=== PATIENT | male | born 1965 | race Caucasian/White ===

== ENCOUNTER 2019-12-19 17:34 | Outpatient (REF) | payer OTHER, SELFPAY ==
--- NOTE | 2019-12-19 17:45 | MR_ITS ---
EXAMINATION: MR LUMBAR SPINE WITHOUT CONTRAST CLINICAL INFORMATION: Radicular. Patient states low back pain with left foot and leg pain. COMPARISON: None TECHNIQUE: MRI of the lumbar spine was obtained using routine sequences without contrast. FINDINGS: The lumbar vertebral bodies maintain normal heights and alignment. There is multilevel intervertebral disc height loss. Mild amount of subchondral marrow edema seen across the L5-S1 level. Mild chronic fatty endplate changes seen at L5-S1. A superior endplate Schmorl's node is seen at L4. There is a prominent hemangioma in the L4 vertebral body left of midline. The distal spinal cord appears normal. The conus medullaris terminates normally at the L1 level. The visualized paraspinal muscles and intra-abdominal and pelvic contents are within normal limits. SPINAL LEVELS: T11-T12: Right subarticular protrusion causing mild flattening of the right ventral thecal sac. No significant spinal canal stenosis or neural foraminal stenosis. L1-L2: No posterior disc abnormality. No spinal canal or neural foraminal stenosis. L2-L3: Disc bulging with mild facet arthropathy. Mild flattening of the left ventral thecal sac. No neural foraminal stenosis. L3-L4: Disc bulging with central protrusion in combination with facet arthropathy results in mild to moderate spinal canal stenosis. Bulging disc extends into the bilateral neural foramina resulting in mild mass effect on the exiting right L3 nerve root. Left neural foramen is mildly narrowed. L4-L5: Disc bulging with moderate facet arthropathy. Mild flattening of the ventral thecal sac. Mild to moderate right neural foraminal stenosis without foraminal nerve root compression. L5-S1: Disc bulging with central disc protrusion resulting in mass effect on the bilateral traversing S1 nerve roots. Mild to moderate facet arthropathy. Moderate to severe left neural foraminal stenosis with mass effect on the exiting left L5 nerve root. Right neural foramen is mild to moderately narrowed. IMPRESSION: Multilevel degenerative spondylotic changes. Subchondral marrow edema seen at the L5-S1 level. At L3-L4 there is mild to moderate spinal canal stenosis and mild mass effect on the exiting right L3 nerve root. At L4-L5 there is mild to moderate right neural foraminal stenosis without foraminal nerve root compression. At L5-S1 there is central disc protrusion causing mass effect on both traversing S1 nerve roots. Moderate to severe left neural foraminal stenosis with mass effect on the exiting left L5 nerve root. Right neural foramen is mild to moderately narrowed.
== END 2019-12-19 17:35 | disposition home or self-care (01) ==
LOC: HO.MRI 17:34
PROVIDERS: Visit Provider Internal Medicine
DX: M54.16 Radiculopathy, lumbar region (principal)
CPT/HCPCS: 72148

== ENCOUNTER 2019-12-27 10:00 | Outpatient (RCR) | payer OTHER, SELFPAY ==
--- NOTE | 2019-12-27 11:55 | MHC.PT.DC ---
[facility] [place] Office [place] [facility] [place] [facility] [address] Daniella Pritchard [address] [phone] F: [phone] F: [phone] F: [phone] F: [phone] Physical Therapy Discharge Report Diagnosis: low back pain Date of Surgery: no surgery. Injury date October 14 2019 Date of Evaluation: 11/22/19 Date of Discharge: 12/27/19 Treatments to Date: 7 Cancellations to Date: 1 No Shows to Date: 0 Discharge Status: Improved Function Independent with HEP Discharge Summary: Pt discussed an MRI with his MD. He arrived with further questions about his spine, and biomechanics. He was heavily educated on posture, spine mechanics, body mechanics, inflammatory process, and plan of care. After discussion he felt he understood body mechanics, posture, and his HEP of core stabilization. I reviewed his HEP. I gave him marito mir and he was d/c. He will f/u with his MD. Please sign and return to therapist. Thank you for your referral.
== END 2020-11-24 09:39 | disposition home or self-care (01) ==
LOC: HO.PT 10:00
PROVIDERS: PCP Internal Medicine; Visit Provider Internal Medicine
DX: M54.5 Low back pain (principal)
CPT/HCPCS: 97110; 97112; 97530

== ENCOUNTER 2020-10-03 11:35 | Outpatient (REF) | payer BC, SELFPAY | END 2020-10-03 11:36 | disposition home or self-care (01) | LOC: HO.LNP 11:35 | PROVIDERS: Visit Provider Physician Assistant Medical | DX: Z20.822 Contact with and (suspected) exposure to COVID-19 (principal); J31.0 Chronic rhinitis | CPT/HCPCS: U0003; U0005 ==

== ENCOUNTER → 2021-03-25 10:16 | Outpatient (REF) | payer BC, SELFPAY ==
--- NOTE | 2021-03-25 10:19 | CA_ITS ---
Acquisition Time: 2021-03-25 11:18:03 Total Exercise Time: 00:02:34 Test Indications: HTN Medications: SEE CHART Protocol: GARCIA Max HR: 102 BPM 62% of Pred: 164 BPM Max BP: 238/088 mmHG Max Work Load: 4.6 METS Exercise stress test with exercise 2 min 34 sec of Garcia protocol, with mild sob, no chest discomfort, without arrythmia, with hypertensive response to exercise with max BP 238/88, with nondiagnostic EKG for ischemia. - On arrival to the stress lab his BP was 184/90. He was allowed to take his usual home amlodipine and HCTZ. His Metoprolol was still held. After 15 min of resting his BP came down to 130s systolic. Test was then started, as above and BP quickly wayne with activity. His test was stopped due to the HTN. He was assisted to sitting position and allowed to rest and take his usual Metoprolol. After 12.5 min BP was down to 178/98, pt asymptomatic, EKGs nonischemic. Test reviewed with Dr Joel Bacon sent to Dr Chow regarding the above, recommendation for pharm nuclear stress test. Referred By: Veronika Chow Overread By: MADINA JOLLY
== END ==
LOC: HO.CARD 10:16
PROVIDERS: PCP Internal Medicine; Visit Provider Internal Medicine
DX: R07.9 Chest pain, unspecified (principal)
CPT/HCPCS: 93017

== ENCOUNTER → 2021-04-27 09:53 | Outpatient (REF) | payer BC, SELFPAY ==
--- NOTE | ~2021-04-27 | NM_ITS ---
Lexiscan Myocardial perfusion study Indication: Chest pain, assess for coronary disease and ischemia Technique: The patient was brought in for a Lexiscan perfusion study on 04/27/2021 and was injected 0.4 mg of Lexiscan intravenously. Within a minute of this injection 45 mCi of sestamibi was given intravenously. Images were obtained using the SPECT gamma camera interlaced with the gating device. Images were obtained in supine position. Resting perfusion study was performed on 05/03/2021. Patient was administered 45 mCi of sestamibi intravenously at rest. Images were then obtained in supine position. Total DLP 145mGy-cm. Images were processed with the software and compared side to side in short axis, horizontal long axis and vertical long axis views. Findings: Raw acquisition was reviewed. The stress perfusion study showed mildly diminished tracer uptake in the apical part of inferolateral wall. There is also some diminished uptake in the basal inferior wall. Inferior uptake seems to improve after CT at admission correction and hence could have components of diaphragmatic attenuation artifact. The gated study shows normal LV systolic function with calculated LVEF of 58%. LV cavity is normal in size. The gated study shows normal wall thickening and contraction of segments. Resting study shows slightly diminished tracer uptake in the basal inferior wall and also in the apical inferolateral wall, similar to the stress acquisition. There is improvement with CT attenuation correction and hence could be from diaphragmatic attenuation artifact. Gating at rest reveals normal wall motion with ejection fraction at 49%. The findings are consistent with no reversible defects. Fixed defect in the basal inferior wall and apical inferolateral wall likely from diaphragmatic attenuation artifact. NM/NM amina perf SPECT rest & str Impression: 1. Myocardial perfusion imaging study shows no evidence of any ischemia or infarction. Likely normal perfusion. 2. Gated LVEF is 58% during stress and 49% during rest. Correlate with echocardiogram. 3. Transient ischemic dilatation not present. EKG component of the test reported separately.
--- NOTE | 2021-04-27 10:01 | CA_ITS ---
Acquisition Time: 2021-04-27 10:07:07 Total Exercise Time: 00:02:00 Test Indications: Chest Pain Medications: Protocol: LEXISCAN Max HR: 090 BPM 54% of Pred: 164 BPM Max BP: 160/078 mmHG Max Work Load: 1.0 METS Pharmacological stress test with Lexiscan injection, while sitting and kicking his legs, without anginal symptoms, without arrythmia, with normotensive response to injection, with nondiagnostic EKG for ischemia. Nuclear images pending. Test reviewed with Dr Isidro. Referred By: Veronika Chow Overread By: MADINA JOLLY
== END ==
LOC: HO.CARD 09:53
PROVIDERS: PCP Internal Medicine; Visit Provider Internal Medicine
DX: R07.9 Chest pain, unspecified (principal)
CPT/HCPCS: 78452; 93017; A9500; J0280; J2785

== ENCOUNTER 2022-10-31 12:52 | Outpatient (REF) | payer OTHER, SELFPAY ==
[2022-10-31 16:20] LABS: MANUAL DIFF FLAG NO
[2022-10-31 16:22] LABS: Basophils Absolute Auto 0.1 X10*3/uL (0.0-0.2); Basophils Percent Auto 0.7 % (0-2); Eosinophils Absolute Auto 0.3 X10*3/uL (0.0-0.4); Eosinophils Percent Auto 4.7 % (0-4); Hematocrit 43.2 % (42.0-52.0); Hemoglobin 14.3 g/dl (14.0-18.0); Imm Gran Abs Auto 0.01 X10*3/uL (0.00-0.03); Imm Gran Pct Auto 0.1 % (0.0-0.4); Lymphocytes Absolute Auto 1.5 X10*3/uL (1.2-4.9); Lymphocytes Percent Auto 22.2 % (20-40); Mean Corpuscular HGB Conc 33.1 g/dl (31.0-36.0); Mean Corpuscular Hemoglobin 29.3 pg (27.0-33.0); Mean Corpuscular Volume 88.5 fL (80.0-98.0); Monocytes Absolute Auto 0.6 X10*3/uL (0.1-1.2); Monocytes Percent Auto 8.8 % (2-11); Neutrophils Absolute Auto 4.4 x10*3/uL (2.0-8.3); Neutrophils Percent Auto 63.5 % (45-73); Platelet Count 252 X10*3/uL (160-400); Red Blood Count 4.88 X10*6/uL (4.60-5.80); Red Cell Distribution Width 12.3 % (11.0-16.0); White Blood Count 6.9 X10*3/uL (4.8-10.8)
[2022-11-01 02:09] LABS: Alanine Aminotransferase 24 U/L (0-40); Albumin Level 4.4 g/dL (3.5-5.0); Alkaline Phosphatase 59 U/L (39-117); Anion Gap 10 (12-20); Aspartate Amino Transferase 25 U/L (5-37); Bilirubin Total 0.4 mg/dL (0.0-1.0); Blood Urea Nitrogen 19 mg/dL (9-16); Calcium 9.6 mg/dL (8.4-10.2); Carbon Dioxide 30 mmol/L (22-29); Chloride 105 mmol/L (96-108); Cholesterol 213 mg/dL; Estimated Glomerular Filt Rate > 60; Free T4 (Free Thyroxine) 0.85 ng/dL (0.71-1.85); Glucose Random 94 mg/dL (60-115); HDL Cholesterol 52 mg/dL; LDL Cholesterol Calculated 138 mg/dl; Sodium 141 mmol/L (135-145); Thyroid Stimulating Hormone 2.22 uIU/mL (0.32-4.0); Total Protein 7.5 g/dL (6.5-8.0); Triglycerides 117 mg/dL
[2022-11-01 05:22] LABS: Estimated Average Glucose 105 mg/dL; Hemoglobin A1c % 5.3 %
== END 2022-10-31 12:53 | disposition home or self-care (01) ==
LOC: HO.HMGCLDS 12:52
PROVIDERS: PCP Internal Medicine; Visit Provider Internal Medicine
DX: Z12.5 Encounter for screening for malignant neoplasm of prostate (principal); I10 Essential (primary) hypertension; E78.00 Pure hypercholesterolemia, unspecified; E66.9 Obesity, unspecified
CPT/HCPCS: 36415; 80053; 80061; 83036; 84153; 84439; 84443; 85025

== ENCOUNTER 2022-10-31 14:01 | Outpatient (AMB) | payer OTHER, SELFPAY ==
--- NOTE | 2022-10-31 14:43 | MHC.PC.OV ---
Vital Signs 10/31/22 14:44 Height 5 ft 9 in Weight 248 lb BMI 36.6 BP 138/66 Blood Pressure Location Lt brachial Position Sitting Pulse 60 Pulse Source Pulse Oximeter Temp Source Skin Pulse Oximetry (%) 97 Oxygen Delivery Method Room Air Intake Visit Reasons: Hypertension Make Up Girl Required: No Allergies amlodipine Adverse Reaction (Intermediate, Verified 10/31/22 14:44) swelling Tobacco use date assessed: 10/31/22 Dental Screening Dental Screen Date: 10/31/22 Did you have a dental visit in the last 12 months?: No Did you have a dental problem in the last 6 months where you did not have access to dental care?: No Was dental information given to patient?: Patient has dentist HPI Hypertension HPI Details 57-year-old obese male with lumbar disc herniation with radiculopathy on narcotic pain medication, hypertension coming in for follow-up. Blood pressure medication adjusted from the last time. Patient is reminded about the Cologuard testing. Patient was last seen in May 2022 patient has been doing good with the blood pressure medication 3 medications and the blood pressure today has been good with no side effects. As for the blood work this was just done today. [facility] Medical History Hypertension Lumbar disc herniation with radiculopathy Obesity (BMI 30-39.9) Surgical History No pertinent past surgical history Family History (Updated 05/27/22 @ 13:24 by Nitish Iqbal CMA) Father Diabetes Mother Parkinson disease Brother Myocardial infarct Brother No problems noted. Brother No problems noted. Sister No problems noted. Sister No problems noted. Son No problems noted. Son No problems noted. Social History Housing: House Alcohol intake: current Patient Tobacco Use Status: Former Tobacco user Years Smoked: 1999 quit e-Cigarette/Vaping Use: Never Used Second Hand Smoke Exposure: No Advance Directives Date on File: 12/20/19 Current occupational status: employed Cognitive needs: No Hearing needs: No Vision needs: No Questionnaire PHQ-9 Over the last 2 weeks, how often have you been bothered by any of the following problems? 1. Little interest or pleasure in doing things: not at all Source: Developed by Drs. Melecio Galan, Brina Walden, Rodolfo Diehl and colleagues, with an educational robb from [employer]. Thrive Questionnaire Date Thrive assessed: 08/05/21 I am a: Patient What is your living situation today?: I have a steady place to live Within the past 12 months, did the food you bought not last and you didn't have the money to get more?: Never true Within the past 12 months, did you worry whether your food would run out before you got money to buy more?: Never true Currently or been in a relationship where the following occur: no concerns reported AUDIT C Alcohol Use Questionnaire (AUDIT-C) 1. How often do you have a drink containing alcohol?: Monthly or less 2. How many drinks containing alcohol do you have on a typical day when you are drinking?: 1 or 2 3. How often do you have six or more drinks on one occasion?: Never Total Score: 1 DAWNA-7 AMB Questionnaire DAWNA-7 Date DAWNA - 7 assessed: 10/31/22 Feeling nervous, anxious, or on edge: 0 = Not at all Not being able to stop or control worryin = Not at all Worrying too much about different things: 0 = Not at all Trouble relaxin = Not at all Being so restless that it is hard to sit still: 0 = Not at all Becoming easily annoyed or irritable: 0 = Not at all Feeling afraid as if something awful might happen: 0 = Not at all Total DAWNA-7 score (0-4 normal; 5-9 mild; 10-14 moderate; 15-21 severe): 0 Source: Developed by Drs. Melecio Galan, Brina Walden, Rodolfo Diehl and colleagues, with an educational robb from [employer]. Physical exam (Primary Care) Vital Signs: Last Vital Signs Pulse 60 10/31/22 14:44 BP 138/66 10/31/22 14:44 Pulse Ox 97 10/31/22 14:44 Oxygen Delivery Method Room Air 10/31/22 14:44 BMI result Body Mass Index 36.6 Tobacco/Smoking Status: Tobacco use Status Tobacco use date assessed 10/31/22 10/31/22 14:48 Patient Tobacco Use Status Former Tobacco user 10/31/22 14:48 e-Cigarette/Vaping Use Never Used 10/31/22 14:48 Thrive Assessment: Date of Thrive Assessment Date Thrive assessed 08/05/21 10/31/22 14:48 Currently or been in a relationship where the following occur: no concerns reported Const General: alert; No acute distress Eyes Conjunctivae: conjunctivae normal Resp Auscultation: clear to auscultation bilaterally Cardio Rate: regular rate Rhythm: regular rhythm GI Inspection: Yes normal to inspection Extrem General: Yes normal to inspection and No edema Assessment and Plan Assessment & Plan (1) Hypertension: Code(s): I10 - Essential (primary) hypertension Plan: Continue with blood pressure medication. Decrease salt intake and exercise continue with lisinopril 40 mg once a day and hydrochlorothiazide 25 mg once a day and metoprolol 100 mg once a day (2) Lumbar disc herniation with radiculopathy: Comment: discussed with the patient the options for this problem from medication, invasive procedures to surgery. definitely would want to hold off surgery. referral to pain management done Code(s): M51.16 - Intervertebral disc disorders with radiculopathy, lumbar region Plan: Narcotic pain meds: Is being prescribed with the understanding that these medications are potentially addictive and should be used only when absolutely necessary and must always be secured. Any remaining pills should be safely disposed off appropriately. Patient is advised that narcotics can impaired judgment and one should not drive or operate heavy machinery while taking these medications. Never share these medications with anybody and do not leave them unattended. They will not be replaced under any circumstances. (3) Obesity (BMI 30-39.9): Code(s): E66.9 - Obesity, unspecified Plan: Diet and exercise Coding Level of Care Code Est Pt Level 4 (77506) Diagnoses Hypertension I10 Lumbar disc herniation with radiculopathy M51.16 Obesity (BMI 30-39.9) E66.9
[2022-10-31 14:44] VITALS: BP 138/66; PULSE 60; O2SAT 97; BMI 36.6
== END 2022-10-31 15:22 | disposition home or self-care (01) ==
PROVIDERS: PCP Internal Medicine; Visit Provider Internal Medicine
DX: I10 Essential (primary) hypertension (principal); M51.16 Intervertebral disc disorders with radiculopathy, lumbar region; E66.9 Obesity, unspecified; Z68.36 Body mass index [BMI] 36.0-36.9, adult
CPT/HCPCS: 99214

== ENCOUNTER 2023-02-13 13:29 | Outpatient (AMB) | payer OTHER, SELFPAY ==
[2023-02-13 13:31] VITALS: BP 162/90; PULSE 50; O2SAT 96; BMI 37.9
--- NOTE | 2023-02-13 13:31 | A.OFFPC_ITS ---
Vital Signs 02/13/23 13:31 Height 5 ft 9 in Weight 257 lb BMI 37.9 BP 162/90 H Blood Pressure Location Lt brachial Position Sitting Pulse 50 Pulse Source Pulse Oximeter Pulse Oximetry (%) 96 Oxygen Delivery Method Room Air Intake Visit Reasons: 3 month f/u Allergies amlodipine Adverse Reaction (Intermediate, Verified 10/31/22 14:44) swelling Medication List - Last Reconciled 02/13/23 by Veronika Chow MD hydrochlorothiazide 25 mg PO QAM 90 days lisinopril 40 mg PO DAILY 90 days metoprolol succinate ER 100 mg PO DAILY oxycodone-acetaminophen 5-325 mg (Percocet) 1 tab PO Q8H PRN 30 days Tobacco use date assessed: 10/31/22 HPI 3 month f/u HPI Details 57-year-old obese male with a history of hypertension and lumbar disc herniation last seen in October 2022. Patient had Cologuard testing June 2019 and due discussed with the patient regarding the weight gain of 10 lb and noted also an elevated blood pressure. Patient is on 3 blood pressure medications already and blood pressure remains to be elevated. Patient declined new medication and will have to work on the weight. Patient is on pain medication and does not need any refill right now. [facility] Medical History Hypertension Lumbar disc herniation with radiculopathy Obesity (BMI 30-39.9) Surgical History No pertinent past surgical history Family History (Updated 05/27/22 @ 13:24 by Nitish Iqbal CMA) Father Diabetes Mother Parkinson disease Brother Myocardial infarct Brother No problems noted. Brother No problems noted. Sister No problems noted. Sister No problems noted. Son No problems noted. Son No problems noted. Housing: House Alcohol intake: current Patient Tobacco Use Status: Former Tobacco user Years Smoked: 1999 quit e-Cigarette/Vaping Use: Never Used Second Hand Smoke Exposure: No Advance Directives Date on File: 12/20/19 Current occupational status: employed Cognitive needs: No Hearing needs: No Vision needs: No Questionnaire Thrive Questionnaire Date Thrive assessed: 08/05/21 DAWNA-7 AMB Questionnaire DAWNA-7 Date DAWNA - 7 assessed: 10/31/22 Source: Developed by Drs. Melecio Galan, Brina Walden, Rodolfo Diehl and colleagues, with an educational robb from [employer]. Physical exam (Primary Care) Vital Signs: Last Vital Signs Pulse 50 02/13/23 13:31 BP 162/90 H 02/13/23 13:31 Pulse Ox 96 02/13/23 13:31 Oxygen Delivery Method Room Air 02/13/23 13:31 BMI result Body Mass Index 37.9 Tobacco/Smoking Status: Tobacco use Status Tobacco use date assessed 10/31/22 02/13/23 13:34 Patient Tobacco Use Status Former Tobacco user 02/13/23 13:34 e-Cigarette/Vaping Use Never Used 02/13/23 13:34 Thrive Assessment: Date of Thrive Assessment Date Thrive assessed 08/05/21 02/13/23 13:34 Const General: alert; No acute distress Eyes Conjunctivae: conjunctivae normal Resp Auscultation: clear to auscultation bilaterally Cardio Rate: regular rate Rhythm: regular rhythm GI Inspection: Yes normal to inspection Extrem General: Yes normal to inspection and No edema Assessment and Plan Assessment & Plan (1) Hypertension: Code(s): I10 - Essential (primary) hypertension Plan: Continue with blood pressure medication. Decrease salt intake and exercise patient is presently taking metoprolol 100 mg once a day lisinopril 40 mg a day and hydrochlorothiazide 25 mg once a day (2) Obesity (BMI 30-39.9): Code(s): E66.9 - Obesity, unspecified Plan: Diet and exercise (3) Lumbar disc herniation with radiculopathy: Comment: discussed with the patient the options for this problem from medication, invasive procedures to surgery. definitely would want to hold off surgery. referral to pain management done Code(s): M51.16 - Intervertebral disc disorders with radiculopathy, lumbar region Plan: Narcotic pain meds: Is being prescribed with the understanding that these medications are potentially addictive and should be used only when absolutely necessary and must always be secured. Any remaining pills should be safely disposed off appropriately. Patient is advised that narcotics can impaired judgment and one should not drive or operate heavy machinery while taking these medications. Never share these medications with anybody and do not leave them unattended. They will not be replaced under any circumstances. (4) Hypercholesterolemia: Code(s): E78.00 - Pure hypercholesterolemia, unspecified Plan: Avoid fried foods, chicken skin, eggs, butter margarine, pastries and meat. Be it pork or beef they have a lot of cholesterol LDL goal of less than 130 and triglyceride of less than 150. October 2022 last blood work (5) Colon cancer screening: Comment: 2019 Code(s): Z12.11 - Encounter for screening for malignant neoplasm of colon Orders: Referrals Cologuard Test Z12.11 - Encounter for screening for malignant neoplasm of colon, Z12.12 - Encounter for screening for malignant neoplasm of rectum Coding Level of Care Code Est Pt Level 4 (64264) Diagnoses Hypertension I10 Obesity (BMI 30-39.9) E66.9 Lumbar disc herniation with radiculopathy M51.16 Hypercholesterolemia E78.00 Colon cancer screening Z12.11
== END 2023-02-13 13:50 | disposition home or self-care (01) ==
PROVIDERS: PCP Internal Medicine; Visit Provider Internal Medicine
DX: I10 Essential (primary) hypertension (principal); M51.16 Intervertebral disc disorders with radiculopathy, lumbar region; E78.00 Pure hypercholesterolemia, unspecified
CPT/HCPCS: 99214

== ENCOUNTER 2023-08-03 12:51 | Outpatient (AMB) | payer OTHER, SELFPAY ==
[2023-08-03 12:53] VITALS: BP 148/92; PULSE 47; O2SAT 97; BMI 37.5
--- NOTE | 2023-08-03 12:53 | A.OFFPC_ITS ---
Vital Signs 08/03/23 12:53 Height 5 ft 9 in Weight 254 lb 0.8 oz BMI 37.5 BP 148/92 H Blood Pressure Location Lt brachial Position Sitting Pulse 47 L Pulse Source Pulse Oximeter Pulse Oximetry (%) 97 Oxygen Delivery Method Room Air Intake Visit Reasons: Hypertension Allergies amlodipine Adverse Reaction (Intermediate, Verified 10/31/22 14:44) swelling Medication List - Last Reconciled 08/03/23 by Veronika Chow MD hydrochlorothiazide 25 mg PO QAM 90 days lisinopril 40 mg PO DAILY 90 days metoprolol succinate ER 100 mg PO DAILY oxycodone-acetaminophen 5-325 mg (Percocet) 1 tab PO Q8H PRN 30 days Tobacco use date assessed: 10/31/22 Dental Screening Dental Screen Date: 10/31/22 HPI Hypertension HPI Details 58-year-old obese male with hypertension hypercholesterolemia and lumbar disc herniation on narcotic pain medication coming in for follow-up. Last seen in January 2023. Patient was noted to have Cologuard positive in February 2023 and has been reminded about colon testing. [facility] Medical History Hypertension Lumbar disc herniation with radiculopathy Obesity (BMI 30-39.9) Surgical History No pertinent past surgical history Family History (Updated 05/27/22 @ 13:24 by Nitish Iqbal CMA) Father Diabetes Mother Parkinson disease Brother Myocardial infarct Brother No problems noted. Brother No problems noted. Sister No problems noted. Sister No problems noted. Son No problems noted. Son No problems noted. Social History Housing: House Alcohol intake: current Patient Tobacco Use Status: Former Tobacco user Years Smoked: 1999 quit e-Cigarette/Vaping Use: Never Used Second Hand Smoke Exposure: No Advance Directives Date on File: 12/20/19 Current occupational status: employed Cognitive needs: No Hearing needs: No Vision needs: No Questionnaire PHQ-9 Over the last 2 weeks, how often have you been bothered by any of the following problems? 1. Little interest or pleasure in doing things: not at all 2. Feeling down, depressed, or hopeless: not at all 3. Trouble falling or staying asleep, or sleeping too much: not at all 4. Feeling tired or having little energy: not at all 5. Poor appetite or overeating: not at all 6. Feeling bad about yourself - or that you are a failure or have let yourself o r your family down: not at all 7. Trouble concentrating on things, such as reading the newspaper or watching television: not at all 8. Moving or speaking so slowly that other people could have noticed. Or the opposite - being so fidgety or restless that you have been moving around a lot more than usual: not at all 9. Thoughts that you would be better off or of hurting yourself in some way: not at all Total score: 0 Depression Screening Interpretation: Negative Depression Screening Done: Yes 37816 - PHQ-9 Billing: Yes Source: Developed by Drs. Melecio Galan, Brina Walden, Rodolfo de la rosa nd colleagues, with an educational robb from [employer]. Thrive Questionnaire Date Thrive assessed: 08/03/23 I am a: Patient What is your living situation today?: I have a steady place to live Within the past 12 months, did the food you bought not last and you didn't have the money to get more?: Never true Within the past 12 months, did you worry whether your food would run out before you got money to buy more?: Never true Do you have trouble paying for medicines?: No Do you have trouble getting transportation to medical appointments?: No Do you have trouble paying your heating and electricity bill?: No Do you have trouble taking care of your child, family member or friend?: No Do you have trouble with day-to-day activities such as bathing, preparing meals, shopping, managing finances, etc.?: No Are you currently unemployed and looking for a job?: No Are you interested in more education?: No Please select the resources that you would like help with: None Currently or been in a relationship where the following occur: no concerns reported THRIVE Score: 0 AUDIT C Alcohol Use Questionnaire (AUDIT-C) 1. How often do you have a drink containing alcohol?: Monthly or less 2. How many drinks containing alcohol do you have on a typical day when you are drinking?: 1 or 2 3. How often do you have six or more drinks on one occasion?: Never Total Score: 1 DAWNA-7 AMB Questionnaire DAWNA-7 Date DAWNA - 7 assessed: 08/03/23 Source: Developed by Drs. Melecio Galan, Brina Walden, Rodolfo Diehl and colleagues, with an educational robb from [employer]. Physical exam (Primary Care) Vital Signs: Oxygen Delivery Method Room Air 08/03/23 12:53 BMI result Body Mass Index 37.5 Tobacco/Smoking Status: Tobacco use Status Tobacco use date assessed 10/31/22 02/13/23 13:34 Patient Tobacco Use Status Former Tobacco user 02/13/23 13:34 e-Cigarette/Vaping Use Never Used 02/13/23 13:34 Depression Screening Interpretation: Negative Thrive Assessment: Date of Thrive Assessment Date Thrive assessed 08/05/21 02/13/23 13:34 Currently or been in a relationship where the following occur: no concerns reported Const General: alert; No acute distress Eyes Conjunctivae: conjunctivae normal Resp Auscultation: clear to auscultation bilaterally Cardio Rate: regular rate Rhythm: regular rhythm GI Inspection: Yes normal to inspection Extrem General: Yes normal to inspection and No edema Assessment and Plan Assessment & Plan (1) Positive colorectal cancer screening using Cologuard test: Code(s): R19.5 - Other fecal abnormalities Plan: Patient is reminded about colon cancer testing (2) Hypercholesterolemia: Code(s): E78.00 - Pure hypercholesterolemia, unspecified Plan: Avoid fried foods, chicken skin, eggs, butter margarine, pastries and meat. Be it pork or beef they have a lot of cholesterol LDL goal of less than 130 and triglyceride of less than 150. Last blood work was done in October 2022. (3) Obesity (BMI 30-39.9): Code(s): E66.9 - Obesity, unspecified Plan: Diet and exercise (4) Lumbar disc herniation with radiculopathy: Comment: discussed with the patient the options for this problem from medication, invasive procedures to surgery. definitely would want to hold off surgery. referral to pain management done Code(s): M51.16 - Intervertebral disc disorders with radiculopathy, lumbar region Plan: Narcotic pain meds: Is being prescribed with the understanding that these medications are potentially addictive and should be used only when absolutely necessary and must always be secured. Any remaining pills should be safely disposed off appropriately. Patient is advised that narcotics can impaired judgment and one should not drive or operate heavy machinery while taking these medications. Never share these medications with anybody and do not leave them unattended. They will not be replaced under any circumstances. (5) Hypertension: Code(s): I10 - Essential (primary) hypertension Plan: Continue with blood pressure medication. Decrease salt intake and exercise patient is taking lisinopril 40 mg once a day hydrochlorothiazide 25 mg once a day and metoprolol 100 mg once a day Orders: Orders Complete Blood Count Auto Diff 3 Months E78.00 - Pure hypercholesterolemia, unspecified Comprehensive Met. Panel 3 Months E78.00 - Pure hypercholesterolemia, unspecified Free T4 (Free Thyroxine) 3 Months E78.00 - Pure hypercholesterolemia, unspecified Thyroid Stimulating Hormone 3 Months E78.00 - Pure hypercholesterolemia, unspecified Lipid Panel 3 Months E78.00 - Pure hypercholesterolemia, unspecified Vitamin B12 and Folate 3 Months E78.00 - Pure hypercholesterolemia, unspecified Prostate Specific Antigen Scr 3 Months E78.00 - Pure hypercholesterolemia, unspecified Referrals Gastroenterology Referral R19.5 - Other fecal abnormalities Medications: Refilled oxycodone-acetaminophen 5-325 mg (Percocet) 1 tab PO Q8H 30 days PRN 60 tabs 0RF pain I10 - Essential (primary) hypertension, M51.16 - Intervertebral disc disorders with radiculopathy, lumbar region Coding Level of Care Code Est Pt Level 4 (06700) Diagnoses Positive colorectal cancer screening using Cologuard test R19.5 Hypercholesterolemia E78.00 Obesity (BMI 30-39.9) E66.9 Lumbar disc herniation with radiculopathy M51.16 Hypertension I10
== END 2023-08-03 13:09 | disposition home or self-care (01) ==
PROVIDERS: PCP Internal Medicine; Visit Provider Internal Medicine
DX: R19.5 Other fecal abnormalities (principal); E78.00 Pure hypercholesterolemia, unspecified; Z68.37 Body mass index [BMI] 37.0-37.9, adult; E66.9 Obesity, unspecified; M51.16 Intervertebral disc disorders with radiculopathy, lumbar region; I10 Essential (primary) hypertension
CPT/HCPCS: 99214

== ENCOUNTER 2024-01-04 12:50 | Outpatient (AMB) | payer OTHER, SELFPAY ==
--- NOTE | 2024-01-04 12:58 | A.OFFPC_ITS ---
Vital Signs 01/04/24 13:00 Height 5 ft 9 in Weight 258 lb 2 oz BMI 38.1 BP 120/78 Blood Pressure Location Lt brachial Position Sitting Pulse 51 Pulse Source Pulse Oximeter Pulse Oximetry (%) 98 Oxygen Delivery Method Room Air Intake Visit Reasons: 3M follow Up Intake Note: Patient is here to follow up on HTN, Hypercholesterolemia, Lumbar disc herniation with radiculopathy. Pt decline flu shot today. Livestock Showman Required: No Coffee Maker: Not Required per policy Accompanied by: Self / Same As Patient Allergies amlodipine Adverse Reaction (Intermediate, Verified 01/04/24 13:00) swelling Tobacco use date assessed: 01/04/24 Dental Screening Dental Screen Date: 01/04/24 Did you have a dental visit in the last 12 months?: No Did you have a dental problem in the last 6 months where you did not have access to dental care?: No Was dental information given to patient?: No HPI 3M follow Up HPI Details 58-year-old obese male with hypercholest erolemia lumbar disc herniation with radiculopathy on narcotic pain medication hypertension last seen in 08/03/2023. Patient had a positive Cologuard testing. Reminded about colon cancer testing. will be seeig the Gastro next week [facility] Medical History Hypertension Lumbar disc herniation with radiculopathy Obesity (BMI 30-39.9) Surgical History No pertinent past surgical history Family History Father Diabetes Mother Parkinson disease Brother Myocardial infarct Brother No problems noted. Brother No problems noted. Sister No problems noted. Sister No problems noted. Son No problems noted. Son No problems noted. Social History Housing: House Alcohol intake: current Patient Tobacco Use Status: Former Tobacco user Years Smoked: 1999 quit e-Cigarette/Vaping Use: Never Used Second Hand Smoke Exposure: No Advance Directives Date on File: 12/20/19 service: No Current occupational status: employed Cognitive needs: No Hearing needs: No Vision needs: No Questionnaire Thrive Questionnaire Date Thrive assessed: 08/03/23 DAWNA-7 AMB Questionnaire DAWNA-7 Date DAWNA - 7 assessed: 08/03/23 Source: Developed by Drs. Melecio Galan, Brina Walden, Rodolfo Diehl and colleagues, with an educational robb from [employer]. Physical exam (Primary Care) Vital Signs: Last Vital Signs Pulse 51 01/04/24 13:00 BP 120/78 01/04/24 13:00 Pulse Ox 98 01/04/24 13:00 Oxygen Delivery Method Room Air 01/04/24 13:00 BMI result Body Mass Index 38.1 Tobacco/Smoking Status: Tobacco use Status Tobacco use date assessed 01/04/24 01/04/24 13:04 Patient Tobacco Use Status Former Tobacco user 01/04/24 13:04 e-Cigarette/Vaping Use Never Used 01/04/24 13:04 Thrive Assessment: Date of Thrive Assessment Date Thrive assessed 08/03/23 01/04/24 13:04 Const General: alert; No acute distress Eyes Conjunctivae: conjunctivae normal Resp Auscultation: clear to auscultation bilaterally Cardio Rate: regular rate Rhythm: regular rhythm GI Inspection: Yes normal to inspection Extrem General: Yes normal to inspection and No edema Coding Level of Care Code Est Pt Level 4 (36087) Diagnoses Positive colorectal cancer screening using Cologuard test R19.5 Obesity (BMI 30-39.9) E66.9 Hypercholesterolemia E78.00 Hypertension I10 Lumbar disc herniation with radiculopathy M51.16 Assessment & Plan Assessment & Plan (1) Positive colorectal cancer screening using Cologuard test: Code(s): R19.5 - Other fecal abnormalities Category: Medical Plan: Patient is reminded about colon cancer screening. (2) Obesity (BMI 30-39.9): Code(s): E66.9 - Obesity, unspecified Category: Medical Plan: Diet and exercise (3) Hypercholesterolemia: Code(s): E78.00 - Pure hypercholesterolemia, unspecified Category: Medical Plan: Avoid fried foods, chicken skin, eggs, butter margarine, pastries and meat. Be it pork or beef they have a lot of cholesterol LDL goal of less than 130 and triglyceride of less than 150 (4) Hypertension: Code(s): I10 - Essential (primary) hypertension Category: Medical Plan: Continue with blood pressure medication. Decrease salt intake and exercise patient on metoprolol 100 mg once a day lisinopril 40 mg 1 day and hydrochlorothiazide 25 mg once a day (5) Lumbar disc herniation with radiculopathy: Comment: discussed with the patient the options for this problem from medication, invasive procedures to surgery. definitely would want to hold off surgery. referral to pain management done Code(s): M51.16 - Intervertebral disc disorders with radiculopathy, lumbar region Category: Medical Plan: Narcotic pain meds: Is being prescribed with the understanding that these medications are potentially addictive and should be used only when absolutely necessary and must always be secured. Any remaining pills should be safely disposed off appropriately. Patient is advised that narcotics can impaired judgment and one should not drive or operate heavy machinery while taking these medications. Never share these medications with anybody and do not leave them unattended. They will not be replaced under any circumstances.
[2024-01-04 13:00] VITALS: BP 120/78; PULSE 51; O2SAT 98; BMI 38.1
== END 2024-01-04 13:22 | disposition home or self-care (01) ==
PROVIDERS: PCP Internal Medicine; Visit Provider Internal Medicine
DX: I10 Essential (primary) hypertension (principal); E66.812 Obesity, class 2; Z68.38 Body mass index [BMI] 38.0-38.9, adult; R19.5 Other fecal abnormalities; E78.00 Pure hypercholesterolemia, unspecified; M51.16 Intervertebral disc disorders with radiculopathy, lumbar region

== ENCOUNTER → 2024-01-04 12:50 | Outpatient (BNVA) | payer OTHER, SELFPAY | PROVIDERS: PCP Internal Medicine; Visit Provider Internal Medicine | DX: R19.5 Other fecal abnormalities (principal); E66.9 Obesity, unspecified; Z68.38 Body mass index [BMI] 38.0-38.9, adult; E78.00 Pure hypercholesterolemia, unspecified; I10 Essential (primary) hypertension; M51.16 Intervertebral disc disorders with radiculopathy, lumbar region; Z79.899 Other long term (current) drug therapy; Z23 Encounter for immunization | CPT/HCPCS: 90471; 90656 ==

== ENCOUNTER 2024-04-30 13:27 | Outpatient (AMB) | payer OTHER, SELFPAY ==
--- NOTE | 2024-04-30 14:39 | MHC.OFFWIV ---
Intake Vital Signs 04/30/24 14:40 Weight 258 lb BP 124/80 Blood Pressure Location Rt brachial Position Sitting Pulse 67 Pulse Source Pulse Oximeter Temp 98 F Temp Source Oral Pulse Oximetry (%) 96 Oxygen Delivery Method Room Air Intake Visit Reasons: EP-chest congestion, headaches, cough, body ache Intake Note: Patient here for cough,chest congestion, runny nose, body aches for about 1 week. Patient Tobacco Use Status: Former Tobacco user Allergies amlodipine Adverse Reaction (Intermediate, Verified 04/30/24 14:40) swelling Do you need a note to return to daycare/school/sports/work: Yes HPI HPI Comments History of Present Illness Details This is a 58-year-old male with a past medical history of hypertension presenting for evaluation of chest congestion, cough, body aches and postnasal drip that has been ongoing since Monday. Patient denies having any fevers, chills, nausea, vomiting, chest pain or shortness for breath. Patient has been taking Coricidin without relief of his discomfort. Patient denies having any recent sick contacts. [facility] Medical History Hypertension Lumbar disc herniation with radiculopathy Obesity (BMI 30-39.9) Surgical History No pertinent past surgical history Family History Father Diabetes Mother Parkinson disease Brother Myocardial infarct Brother No problems noted. Brother No problems noted. Sister No problems noted. Sister No problems noted. Son No problems noted. Son No problems noted. Social History Housing: House Alcohol intake: current Patient Tobacco Use Status: Former Tobacco user Years Smoked: 1999 quit e-Cigarette/Vaping Use: Never Used Second Hand Smoke Exposure: No Advance Directives Date on File: 12/20/19 service: No Current occupational status: employed Cognitive needs: No Hearing needs: No Vision needs: No Review of Systems Const All systems reviewed & are unremarkable except as noted in HPI and below Reports body aches, Denies chills, Denies fatigue, Denies fever(s) and Denies headache(s) Eyes Reports no additional complaints ENT Reports no additional complaints, Denies dizziness, Denies headache(s), Denies nasal congestion, Denies nasal discharge, Reports sinus pressure and Denies sore throat Card Reports no additional complaints, Denies chest pain and Denies dyspnea Resp Reports no additional complaints, Reports cough and Denies dyspnea GI Reports no additional complaints, Denies nausea and Denies vomiting Reports no additional complaints Musc Reports no additional complaints Skin/Breast Reports system reviewed and no additional complaints, except as documented Neuro Reports no additional complaints, Denies dizziness and Denies headache(s) Psych Reports no additional complaints Endo Reports no additional complaints and Denies fatigue Yovany/Lymph Reports no additional complaints Physical Exam Vital Signs: Last Vital Signs Temp 98 F 04/30/24 14:40 Pulse 67 04/30/24 14:40 BP 124/80 04/30/24 14:40 Pulse Ox 96 04/30/24 14:40 Oxygen Delivery Method Room Air 04/30/24 14:40 Const General: cooperative, healthy appearing, comfortable, no acute distress, well developed, alert, awake and Physically active Nutritional Appearance: overweight Orientation/consciousness: patient oriented x3 Limitations: no limitations HEENT Head: Yes normal to inspection and Yes normocephalic Ears: hearing grossly normal bilaterally, external ears normal, TM's normal bilaterally and EAC's normal General nose exam: Normal external nose present Face and sinus: Yes normal facial exam and Yes sinuses nontender Mouth: Normal oral and palatal mucosa present and moist mucous membranes Throat: Yes posterior oropharynx normal and Yes postnasal drainage Eyes General: appearance normal, both eyes and all related structures Conjunctivae: conjunctivae normal Pupils: Equal, round and reactive pupils present EOM: EOMs intact bilaterally Direct Ophthalmoscopy: no photophobia Neck Lymphatic: no lymphadenopathy noted Resp Effort & Inspection: normal respiratory effort, able to speak in complete sentences, no audible wheezes and no cough Auscultation: wheezes expiratory wheezes and throughout Cardio Rate: regular rate Rhythm: regular rhythm Neuro General: patient oriented x3 Cranial nerves: Yes Equal, round and reactive pupils present Psych Appearance: grossly normal Mental Status: mental status grossly normal Insight: Good insight present (Psych) Judgement: Good judgement present (Psych) Assessment & Plan Assessment & Plan (1) Acute upper respiratory infection: Comment: SARS panel is ordered and results are pending. Patient is afebrile and in no acute distress. Chest x-ray is deferred at this time. Code(s): J06.9 - Acute upper respiratory infection, unspecified Plan: Mucinex OTC with increase clear fluids, ibuprofen or Tylenol as needed for discomfort. Orders: Orders SARS-CoV2/FLU/RSV Today J06.9 - Acute upper respiratory infection, unspecified Coding Level of Care Code Est Pt Level 3 (41130) Diagnoses Acute upper respiratory infection J06.9 Time Spent (min) 20
[2024-04-30 14:40] VITALS: BP 124/80; PULSE 67; TEMP 36.6; O2SAT 96
== END 2024-04-30 15:19 | disposition home or self-care (01) ==
PROVIDERS: PCP Internal Medicine; Visit Provider Physician Assistant
DX: J06.9 Acute upper respiratory infection, unspecified (principal)

== ENCOUNTER 2024-04-30 13:27 | Outpatient (REF) | payer OTHER, SELFPAY ==
[2024-04-30 17:57] LABS: Influenza A PCR NEGATIVE (Negative); Influenza B PCR NEGATIVE (Negative); Resp Syncy Virus RNA Qual PCR NEGATIVE (Negative); SARS COV2 PCR INHOUSE NEGATIVE (Negative)
== END 2024-04-30 13:28 | disposition home or self-care (01) ==
LOC: HO.LNP 13:27
PROVIDERS: PCP Internal Medicine; Visit Provider Physician Assistant
DX: J06.9 Acute upper respiratory infection, unspecified (principal)
CPT/HCPCS: 0241U

== ENCOUNTER 2024-10-14 13:50 | Outpatient (AMB) | payer OTHER, SELFPAY ==
[2024-10-14 13:57] VITALS: BP 158/80; PULSE 54; RESP 18; TEMP 36.2; O2SAT 97; BMI 38.2
--- NOTE | 2024-10-14 13:57 | MHC.PC.OV ---
Vital Signs 10/14/24 13:57 Height 5 ft 9 in Weight 258 lb 8 oz BMI 38.2 BP 158/80 H Blood Pressure Location Lt brachial Position Sitting Respiration 18 Pulse 54 Pulse Source Pulse Oximeter Temp 97.1 F Temp Source Temporal Artery Scan Pulse Oximetry (%) 97 Oxygen Delivery Method Room Air Intake Visit Reasons: HTN CHRONIC LOWER BACK PAIN Group Director Required: No Accompanied by: Self / Same As Patient Allergies amlodipine Adverse Reaction (Intermediate, Verified 10/14/24 13:58) swelling Medication List - Last Reconciled 10/14/24 by Veronika Chow MD hydrochlorothiazide 25 mg PO QAM 90 days lisinopril 40 mg PO DAILY 90 days metoprolol succinate ER 100 mg PO DAILY Tobacco use date assessed: 10/14/24 Dental Screening Dental Screen Date: 10/14/24 Did you have a dental visit in the last 12 months?: No Did you have a dental problem in the last 6 months where you did not have access to dental care?: No Was dental information given to patient?: Patient has dentist [facility] Medical History Obesity (BMI 30-39.9) Lumbar disc herniation with radiculopathy Hypertension Surgical History No pertinent past surgical history Family History Father Diabetes Mother Parkinson disease Brother Myocardial infarct Brother No problems noted. Brother No problems noted. Sister No problems noted. Sister No problems noted. Son No problems noted. Son No problems noted. Social History Housing: House Alcohol intake: current Patient Tobacco Use Status: Former Tobacco user Years Smoked: 1999 quit e-Cigarette/Vaping Use: Never Used Second Hand Smoke Exposure: No Advance Directives Date on File: 12/20/19 service: No Current occupational status: employed Cognitive needs: No Hearing needs: No Vision needs: No Questionnaire PHQ-9 Over the last 2 weeks, how often have you been bothered by any of the following problems? 1. Little interest or pleasure in doing things: not at all 2. Feeling down, depressed, or hopeless: not at all 3. Trouble falling or staying asleep, or sleeping too much: not at all 4. Feeling tired or having little energy: not at all 5. Poor appetite or overeating: not at all 6. Feeling bad about yourself - or that you are a failure or have let yourself or your family down: not at all 7. Trouble concentrating on things, such as reading the newspaper or watching television: not at all 8. Moving or speaking so slowly that other people could have noticed. Or the opposite - being so fidgety or restless that you have been moving around a lot more than usual: not at all 9. Thoughts that you would be better off or of hurting yourself in some way: not at all Total score: 0 Source: Developed by Drs. Melecio Galan, Brina Walden, Rodolfo Diehl and colleagues, with an educational robb from [employer]. Thrive Questionnaire Date Thrive assessed: 10/14/24 I am a: Patient What is your living situation today?: I have a steady place to live Within the past 12 months, did the food you bought not last and you didn't have the money to get more?: Never true Within the past 12 months, did you worry whether your food would run out before you got money to buy more?: Never true Do you have trouble paying for medicines?: No Do you have trouble getting transportation to medical appointments?: No Do you have trouble paying your heating and electricity bill?: No Do you have trouble taking care of your child, family member or friend?: No Do you have trouble with day-to-day activities such as bathing, preparing meals, shopping, managing finances, etc.?: No Are you currently unemployed and looking for a job?: No Are you interested in more education?: No Please select the resources that you would like help with: None Currently or been in a relationship where the following occur: No concerns reported THRIVE Score: 0 AUDIT C Alcohol Use Questionnaire (AUDIT-C) 1. How often do you have a drink containing alcohol?: Monthly or less 2. How many drinks containing alcohol do you have on a typical day when you are drinking?: 1 or 2 3. How often do you have six or more drinks on one occasion?: Never Total Score: 1 DAWNA-7 AMB Questionnaire DAWNA-7 Date DAWNA - 7 assessed: 10/14/24 Feeling nervous, anxious, or on edge: 0 = Not at all Not being able to stop or control worryin = Not at all Worrying too much about different things: 0 = Not at all Trouble relaxin = Not at all Being so restless that it is hard to sit still: 0 = Not at all Becoming easily annoyed or irritable: 0 = Not at all Feeling afraid as if something awful might happen: 0 = Not at all Total DAWNA-7 score (0-4 normal; 5-9 mild; 10-14 moderate; 15-21 severe): 0 Source: Developed by Drs. Melecio Galan, Brina Walden, Rodolfo Diehl and colleagues, with an educational robb from [employer]. Physical exam (Primary Care) Vital Signs: Last Vital Signs Temp 97.1 F 10/14/24 13:57 Pulse 54 10/14/24 13:57 Resp 18 10/14/24 13:57 BP 158/80 H 10/14/24 13:57 Pulse Ox 97 10/14/24 13:57 Oxygen Delivery Method Room Air 10/14/24 13:57 BMI result Body Mass Index 38.2 Tobacco/Smoking Status: Tobacco use Status Tobacco use date assessed 10/14/24 10/14/24 14:06 Patient Tobacco Use Status Former Tobacco user 10/14/24 14:06 e-Cigarette/Vaping Use Never Used 10/14/24 14:06 PHQ-9: PHQ-9 Score PHQ-9: Total score 0 10/14/24 14:06 Thrive Assessment: Date of Thrive Assessment Date Thrive assessed 10/14/24 10/14/24 14:06 Currently or been in a relationship where the following occur: No concerns reported Const General: alert; No acute distress Eyes Conjunctivae: conjunctivae normal Resp Auscultation: clear to auscultation bilaterally Cardio Rate: regular rate Rhythm: regular rhythm GI Inspection: Yes normal to inspection Extrem General: Yes normal to inspection and No edema Coding Level of Care Code Est Pt Level 4 (44375) Complex EM visit Add On G2211 Diagnoses Hypertension I10 Hypercholesterolemia E78.00 Obesity (BMI 30-39.9) E66.9 Positive colorectal cancer screening using Cologuard test R19.5 Lumbar disc herniation with radiculopathy M51.16 Assessment & Plan Assessment & Plan (1) Hypertension: Code(s): I10 - Essential (primary) hypertension Category: Medical Plan: Continue with blood pressure medication. Decrease salt intake and exercise patient on lisinopril, hydrochlorothiazide and metoprolol (2) Hypercholesterolemia: Code(s): E78.00 - Pure hypercholesterolemia, unspecified Category: Medical Plan: Avoid fried foods, chicken skin, eggs, butter margarine, pastries and meat. Be it pork or beef they have a lot of cholesterol will repeat blood work (3) Obesity (BMI 30-39.9): Code(s): E66.9 - Obesity, unspecified Category: Medical Plan: Diet and exercise (4) Positive colorectal cancer screening using Cologuard test: Code(s): R19.5 - Other fecal abnormalities Category: Medical Plan: Patient is reminded about colonoscopy (5) Lumbar disc herniation with radiculopathy: Comment: discussed with the patient the options for this problem from medication, invasive procedures to surgery. definitely would want to hold off surgery. referral to pain management done Code(s): M51.16 - Intervertebral disc disorders with radiculopathy, lumbar region Category: Medical Plan: Narcotic pain meds: Is being prescribed with the understanding that these medications are potentially addictive and should be used only when absolutely necessary and must always be secured. Any remaining pills should be safely disposed off appropriately. Patient is advised that narcotics can impaired judgment and one should not drive or operate heavy machinery while taking these medications. Never share these medications with anybody and do not leave them unattended. They will not be replaced under any circumstances. Plan History of Present Illness The patient is a 59-year-old obese male presenting for a follow-up visit. The patient has a history of essential hypertension, managed with lisinopril, metoprolol, and hydrochlorothiazide. Her blood pressure readings at home are variable, with the lowest readings around 134/135 mmHg systolic. She is on the highest dose of her current medications, and there is consideration for adding a fourth medication or referring to nephrology for further management. The patient also has a history of hypercholesterolemia, with the last blood work in 2022 showing elevated cholesterol levels. A plan is in place to repeat blood work and encourage diet and exercise modifications. The patient underwent a colorectal cancer screening with Cologuard, which returned a positive result. She has been attempting to schedule a follow-up colonoscopy for over a year without success. In May, the patient visited the emergency room due to chemical exposure at home, resulting in nasal and throat irritation and coughing. Additionally, she was treated for a respiratory tract infection in April at an urgent care center. Health Maintenance - Colorectal cancer screening with Cologuard: Positive result, follow-up colonoscopy pending - Blood pressure management: Monitoring and potential nephrology referral - Hypercholesterolemia management: Repeat blood work and lifestyle modifications Social History Review of Systems - Respiratory: Reports nasal and throat irritation, coughing Physical Exam Results - Labs: Last blood work in 2022 showed elevated cholesterol levels - Screening Tests: Colorectal cancer screening with Cologuard was positive Plan The patient will continue with her current antihypertensive regimen, which includes lisinopril, metoprolol, and hydrochlorothiazide. Given the variability in her blood pressure readings, a referral to nephrology is planned to explore further management options, including the possibility of adding a fourth medication. For hypercholesterolemia, repeat blood work is scheduled to assess current levels, and the patient is advised to adhere to dietary and exercise recommendations to manage cholesterol levels effectively. The patient is reminded of the importance of completing a follow-up colonoscopy due to the positive Cologuard test, and efforts will be made to facilitate this appointment. Additionally, the patient is informed about the availability of shingles vaccination at local pharmacies, and the potential side effects are discussed. Patient was informed and verbally consented to the use of an ambient scribe for clinic note documentation during this visit. Discussion Notes During the visit, I discussed with the patient the management of is hypertension, including the possibility of adding a fourth medication or referring her to nephrology for further evaluation. We also reviewed her hypercholesterolemia management plan, emphasizing the need for repeat blood work and lifestyle modifications. I highlighted the importance of completing a follow-up colonoscopy due to her positive Cologuard test and assured is that we would assist in scheduling this appointment. Additionally, I informed her about the shingles vaccination available at pharmacies and discussed potential side effects. Patient Instructions - Continue taking lisinopril, metoprolol, and hydrochlorothiazide as prescribed. - Monitor blood pressure at home and report any significant changes. - Follow dietary and exercise recommendations to manage cholesterol levels. - Schedule and complete a follow-up colonoscopy as soon as possible. - Consider getting the shingles vaccination at a local pharmacy. Orders: Orders Free T4 (Free Thyroxine) Today E78.00 - Pure hypercholesterolemia, unspecified Lipid Panel Today E78.00 - Pure hypercholesterolemia, unspecified Complete Blood Count Auto Diff Today E78.00 - Pure hypercholesterolemia, unspecified Comprehensive Met. Panel Today E78.00 - Pure hypercholesterolemia, unspecified Thyroid Stimulating Hormone Today E78.00 - Pure hypercholesterolemia, unspecified Vitamin B12 and Folate Today E78.00 - Pure hypercholesterolemia, unspecified Prostate Specific Antigen Scr Today E78.00 - Pure hypercholesterolemia, unspecified Hemoglobin A1c Today E78.00 - Pure hypercholesterolemia, unspecified Referrals Nephrology Referral I10 - Essential (primary) hypertension Gastroenterology Referral R19.5 - Other fecal abnormalities
== END 2024-10-14 14:42 | disposition home or self-care (01) ==
LOC: HO.HMCH 13:51
PROVIDERS: PCP Internal Medicine; Visit Provider Internal Medicine
DX: I10 Essential (primary) hypertension (principal); E66.9 Obesity, unspecified; Z68.38 Body mass index [BMI] 38.0-38.9, adult; E78.00 Pure hypercholesterolemia, unspecified; R19.5 Other fecal abnormalities; M51.16 Intervertebral disc disorders with radiculopathy, lumbar region

== ENCOUNTER 2024-10-25 09:52 | Outpatient (REF) | payer OTHER, SELFPAY ==
[2024-10-25 13:11] LABS: MANUAL DIFF FLAG NO
[2024-10-25 13:27] LABS: Hematocrit 40.9 % (42.0-52.0); Hemoglobin 13.7 g/dl (14.0-18.0); Imm Gran Abs Auto 0.02 X10*3/uL (0.00-0.03); Imm Gran Pct Auto 0.3 % (0.0-0.4); Lymphocytes Absolute Auto 1.6 X10*3/uL (1.2-4.9); Mean Corpuscular HGB Conc 33.5 g/dl (31.0-36.0); Mean Corpuscular Hemoglobin 28.5 pg (27.0-33.0); Mean Corpuscular Volume 85.0 fL (80.0-98.0); NRBC Abs Auto 0.000 X10*3/uL (0.0-0.012); NRBC Pct Auto 0.0 /100WBC (0.0-0.2); Platelet Count 262 X10*3/uL (160-400); Red Blood Count 4.81 X10*6/uL (4.60-5.80); White Blood Count 6.2 X10*3/uL (4.8-10.8)
[2024-10-25 13:38] LABS: Hemoglobin A1C 147.5203 umol/L; Total Hemoglobin (HGBA1C) 3639.9213 umol/L
[2024-10-25 14:10] LABS: Alanine Aminotransferase 27 U/L (0-40); Albumin Level 4.5 g/dL (3.5-5.0); Alkaline Phosphatase 67 U/L (39-117); Anion Gap 11 (12-20); Aspartate Amino Transferase 35 U/L (5-37); Blood Urea Nitrogen 15 mg/dL (9-16); Calcium 9.0 mg/dL (8.4-10.2); Carbon Dioxide 28 mmol/L (22-29); Chloride 104 mmol/L (96-108); Cholesterol 201 mg/dL (<200); Estimated Glomerular Filt Rate > 60; Free T4 (Free Thyroxine) 1.00 ng/dL (0.71-1.85); HDL Cholesterol 40 mg/dL (>40); Potassium 4.1 mmol/L (3.3-5.1); Sodium 139 mmol/L (135-145); Thyroid Stimulating Hormone 2.35 uIU/mL (0.32-4.0); Total Protein 7.3 g/dL (6.5-8.0); Triglycerides 143 mg/dL (<150)
[2024-10-25 14:26] LABS: Folate 10.9 ng/mL (> or = 4.0); Vitamin B12 575 pg/mL (200-900)
== END 2024-10-25 09:53 | disposition home or self-care (01) ==
LOC: HO.HMGCLDS 09:52
PROVIDERS: PCP Internal Medicine; Visit Provider Internal Medicine
DX: Z12.5 Encounter for screening for malignant neoplasm of prostate (principal); Z13.1 Encounter for screening for diabetes mellitus; J06.9 Acute upper respiratory infection, unspecified; E78.00 Pure hypercholesterolemia, unspecified
CPT/HCPCS: 36415; 80053; 80061; 82607; 82746; 83036; 84153; 84439; 84443; 85025

== ENCOUNTER 2024-10-25 10:02 | Outpatient (AMB) | payer OTHER, SELFPAY ==
[2024-10-25 11:15] VITALS: BP 162/84; PULSE 53; TEMP 36.4; O2SAT 96; BMI 38.1
--- NOTE | 2024-10-25 11:15 | AM.OFFWIN_ITS ---
Intake Vital Signs 10/25/24 11:15 Height 5 ft 9 in Weight 258 lb BMI 38.1 BP 162/84 H Blood Pressure Location Lt brachial Position Sitting Pulse 53 Pulse Source Pulse Oximeter Temp 97.6 F Temp Source Oral Pulse Oximetry (%) 96 Oxygen Delivery Method Room Air Intake Visit Reasons: EP-cold & allergy symptoms Intake Note: presents with sinus congestion, throat is itchy, chest congestion with a dry cough, body weakness Patient Tobacco Use Status: Former Tobacco user Allergies amlodipine Adverse Reaction (Intermediate, Verified 10/25/24 11:18) swelling Do you need a note to return to daycare/school/sports/work: Yes HPI EP-cold & allergy symptoms HPI Details This is a 59-year-old male patient who presents to the walk-in clinic today with a 3-4 day history of body aches, dry cough, nasal congestion. Denies any known exposure to sick contacts. Denies any shortness of breath or GI symptoms. Denies any fevers/chills. Has taken Audrey as he was unsure if this was related to allergies. Missed work yesterday and today due to this. [facility] Medical History Obesity (BMI 30-39.9) Lumbar disc herniation with radiculopathy Hypertension Surgical History No pertinent past surgical history Family History Father Diabetes Mother Parkinson disease Brother Myocardial infarct Brother No problems noted. Brother No problems noted. Sister No problems noted. Sister No problems noted. Son No problems noted. Son No problems noted. Social History Housing: House Alcohol intake: current Patient Tobacco Use Status: Former Tobacco user Years Smoked: 1999 quit e-Cigarette/Vaping Use: Never Used Second Hand Smoke Exposure: No Advance Directives Date on File: 12/20/19 service: No Current occupational status: employed Cognitive needs: No Hearing needs: No Vision needs: No Review of Systems Const All systems reviewed & are unremarkable except as noted in HPI and below Physical Exam Vital Signs: Last Vital Signs Temp 97.6 F 10/25/24 11:15 Pulse 53 10/25/24 11:15 BP 162/84 H 10/25/24 11:15 Pulse Ox 96 10/25/24 11:15 Oxygen Delivery Method Room Air 10/25/24 11:15 BMI result Body Mass Index 38.1 Const General: cooperative and no acute distress HEENT Head: Yes normal to inspection Ears: hearing grossly normal bilaterally General nose exam: Normal external nose present and Nasal discharge present mucoid Face and sinus: Yes normal facial exam Mouth: Normal oral and palatal mucosa present Throat: Yes posterior oropharynx abnormal (mild erythema) Resp Effort & Inspection: normal respiratory effort Auscultation: clear to auscultation bilaterally Cardio Rate: regular rate Rhythm: regular rhythm Skin General skin exam: no rashes or lesions noted Extrem General: Yes capillary refill normal and Yes no clubbing, cyanosis or edema Psych Appearance: grossly normal Mental Status: mental status grossly normal Speech and movement: Normal speech and movement present Assessment & Plan Assessment & Plan (1) Viral upper respiratory illness: Code(s): J06.9 - Acute upper respiratory infection, unspecified Plan: Symptoms and exam are consistent with viral illness. We discussed typically self-limiting nature of symptoms and conservative measures for treatment, including rest, hydration, healthy food/vitamin intake, [id number] cold/flu medication. He states that Mucinex has been helpful for similar illnesses in the past, and he is going to use this. If he does not improve with time and conservative measures, he can return to the clinic for further evaluation. All questions were answered patient verbalizes understanding and agrees to plan. Declined viral testing today. Work note provided. Coding Level of Care Code Est Pt Level 4 (93949) Diagnoses Viral upper respiratory illness J06.9
== END 2024-10-25 11:58 | disposition home or self-care (01) ==
PROVIDERS: PCP Internal Medicine; Visit Provider Nurse Practitioner Family
DX: J06.9 Acute upper respiratory infection, unspecified (principal)